=== PATIENT | male | born 1980 | race Caucasian/White ===

== ENCOUNTER 2017-06-30 11:02 | Emergency (ER) | payer OTHER ==
[~2017-06-30] VITALS: Ht 193 cm; Wt 122.5 kg
[~2017-06-30 11:02] MED LIST: BACTRIM DS TAB1 EACH PO; IBUPROFEN 800800 M1 PO; ULTRAM 50MG TAB50 MG PO
[2017-06-30] MEDS ORDERED: MEDROLDOSEPACK PO (11:30)
[2017-06-30] MEDS ORDERED: TRIAMCINOLONE A80 G2 TOP (11:30)
[2017-06-30 11:48] VITALS: BP 127/63
== END 2017-06-30 11:49 | disposition home or self-care (01) ==
LOC: M.ERS 11:02
DX: R21 Rash and other nonspecific skin eruption (principal); F10.20 Alcohol dependence, uncomplicated; M19.042 Primary osteoarthritis, left hand; M19.041 Primary osteoarthritis, right hand; Z88.0 Allergy status to penicillin; Z88.5 Allergy status to narcotic agent